=== PATIENT | female | born 1970 | race Caucasian/White ===

== ENCOUNTER → 2018-02-13 | Outpatient (CLI) | payer BC ==
[~2018-02-13] VITALS: Ht 162.6 cm; Wt 138.6 kg
[~2018-02-13] MED LIST: ALLERGY RELIEF10 M5 PO; FIORICET 50-301 EAC1 PO; GLUCOPHAGE1000 MG PO; MULTIPLE VITAM1 EAC1 PO; OMEPRAZOLE40 M1 PO; PROAIR HFA8.5 GM IH; SOMA350 MG PO; TOPAMAX100 MG PO; TOPAMAX50 MG PO; ULTRAM50 MG PO; VASOTEC10 MG PO; VASOTEC20 MG PO; VOLTAREN75 MG PO; ZOCOR10 MG PO
== END | disposition home or self-care (01) ==
LOC: AMB 01-18 12:00
PROVIDERS: Internal Medicine Gastroenterology
DX: K29.50 Unspecified chronic gastritis without bleeding (principal); K62.1 Rectal polyp; K64.8 Other hemorrhoids; K21.9 Gastro-esophageal reflux disease without esophagitis; K62.5 Hemorrhage of anus and rectum; I10 Essential (primary) hypertension; E11.9 Type 2 diabetes mellitus without complications; Z79.84 Long term (current) use of oral hypoglycemic drugs; E78.5 Hyperlipidemia, unspecified; J45.909 Unspecified asthma, uncomplicated; Z80.0 Family history of malignant neoplasm of digestive organs; Z87.891 Personal history of nicotine dependence; Z68.43 Body mass index [BMI] 50.0-59.9, adult
CPT/HCPCS: 82948; 88305; 88342 TC; J2250